=== PATIENT | male | born 1945 | race African-American/Black ===

== ENCOUNTER 2019-03-25 07:32 | Emergency (ER) | payer MEDICARE, MEDICAID ==
[~2019-03-25] VITALS: Ht 170.2 cm; Wt 72.6 kg
[~2019-03-25 07:32] MED LIST: AMLODIPINE
[2019-03-25] MEDS ORDERED: SODIUM CHLORIDE 0.9% 1,000 ML IV ONE (07:59)
[2019-03-25 08:23] LABS: Basophils # (auto) 0.1 uL; Basophils % (auto) 1.4 % (0.0-2.0); Eosinophils # (auto) 0.1 uL; Hemoglobin 14.4 g/dL (13.5-17.5); Lymphocytes % (auto) 18.1 % (10.0-50.0); Mean Corpuscular Hemoglobin 30.3 pg (28.0-32.0); Mean Corpuscular Hgb Conc. 33.5 g/dL (32.0-36.0); Mean Corpuscular Volume 90.3 fL (80.0-100.0); Monocytes # (auto) 0.5 uL; Monocytes % (auto) 8.6 % (0.0-12.0); Neutrophils # (auto) 3.8 uL; Neutrophils % (auto) 69.9 % (37.0-80.0); Platelet Count (auto) 160 10^3/uL (140-450); Red Blood Cells 4.76 10^6/uL (4.5-5.90); Red Cell Distribution Width 15.7 % (11.8-14.3); White Blood Cell 5.4 10^3/uL (4.4-10.8)
[2019-03-25 08:37] LABS: Albumin 3.4 g/dL (3.4-5.0); Calcium 8.6 mg/dL (8.5-10.1); Chloride 108 mmol/L (98-107); Potassium 3.6 mmol/L (3.5-5.1); Sodium 140 mmol/L (136-145)
[2019-03-25 08:45] LABS: Alanine Aminotransferase 14 U/L (16-61); Alkaline Phosphatase 86 U/L (45-117); Anion Gap 4 (5-15); Aspartate Aminotransferase 14 U/L (15-37); Bilirubin, Total 0.7 mg/dL (0.2-1.0); Blood Urea Nitrogen 12 mg/dL (7-18); Carbon Dioxide 28 mmol/L (21-32); GFR African American 68 mL/min; GFR Non-African American 56 mL/min; Glucose 90 mg/dL (74-106); Magnesium 2.2 mg/dL (1.6-2.6); Total Protein 7.2 g/dL (6.4-8.2)
[2019-03-25 09:32] LABS: Urine Bacteria FEW /hpf (None Seen); Urine Blood TRACE /uL (Negative); Urine Specific Gravity 1.015 (1.001-1.035); Urine WBC 1 /hpf (0 - 3)
[2019-03-25] MEDS ORDERED: cloNIDine HCL 0.1 MG TAB PO ONE (10:30)
[2019-03-25 12:05] VITALS: BP 154/83
== END 2019-03-25 12:25 | disposition home or self-care (01) ==
LOC: EDBD 07:32 → ER 07:34
DX: I10 Essential (primary) hypertension (principal); R42 Dizziness and giddiness; E78.5 Hyperlipidemia, unspecified; Z87.891 Personal history of nicotine dependence
CPT/HCPCS: 36415; 71046; 80053; 81001; 83735; 84443; 84484; 85025; 96360; 96361; 99284; J7030

== ENCOUNTER 2020-08-27 04:33 | Emergency (ER) | payer MEDICAID ==
[~2020-08-27] VITALS: Ht 167.6 cm; Wt 68.0 kg
[2020-08-27 07:50] VITALS: BP 113/54
== END 2020-08-27 08:14 | disposition home or self-care (01) ==
LOC: ER 04:33 → EDBD 04:33 → ER 08:14
DX: M25.572 Pain in left ankle and joints of left foot (principal); F41.9 Anxiety disorder, unspecified; M79.18 Myalgia, other site; E78.5 Hyperlipidemia, unspecified; I10 Essential (primary) hypertension; F12.10 Cannabis abuse, uncomplicated; Z87.891 Personal history of nicotine dependence; Z20.828 Contact with and (suspected) exposure to other viral communicable diseases
CPT/HCPCS: 36415; 73600; 87426

== ENCOUNTER 2020-11-16 16:01 | Inpatient (IN) | payer MEDICARE, MEDICAID ==
[~2020-11-16] VITALS: Ht 177.8 cm; Wt 62.0 kg
[2020-11-16 17:12] LABS: Basophils # (auto) 0.1 10 ^3/uL (0-0.2); Basophils % (auto) 1.3 % (0.0-2.0); Eosinophils # (auto) 0.2 10 ^3/uL (0-0.8); Eosinophils % (auto) 2.1 % (0.0-7.0); Hematocrit 30.3 % (41.0-53.0); Hemoglobin 9.6 g/dL (13.5-17.5); Lymphocytes # (auto) 1.1 10 ^3/uL (0.4-5.4); Lymphocytes % (auto) 12.9 % (10.0-50.0); Mean Corpuscular Hemoglobin 28.5 pg (28.0-32.0); Mean Corpuscular Hgb Conc. 31.5 g/dL (32.0-36.0); Mean Corpuscular Volume 90.4 fL (80.0-100.0); Monocytes # (auto) 0.8 10 ^3/uL (0-1.3); Monocytes % (auto) 9.1 % (0.0-12.0); Neutrophils # (auto) 6.3 10 ^3/uL (1.6-8.6); Neutrophils % (auto) 74.6 % (37.0-80.0); Nucleated Red Blood Cells % 0.1 %; Platelet Count (auto) 281 10^3/uL (140-450); Red Blood Cells 3.35 10^6/uL (4.5-5.90); White Blood Cell 8.4 10^3/uL (4.4-10.8)
[2020-11-16 17:13] LABS: Red Cell Distribution Width 20.8 % (11.8-14.3)
[2020-11-16] MEDS ORDERED: SODIUM CHLORIDE 0.9% 1,000 ML IV ONE (17:15)
[2020-11-16 17:31] LABS: Albumin 2.9 g/dL (3.4-5.0); Calcium 8.3 mg/dL (8.5-10.1)
[2020-11-16 17:34] LABS: BUN/Creatinine Ratio 20.6
[2020-11-16 17:36] LABS: Bilirubin, Total 0.9 mg/dL (0.2-1.0); Total Protein 6.6 g/dL (6.4-8.2)
[2020-11-16 17:40] LABS: Magnesium 1.9 mg/dL (1.6-2.6)
[2020-11-16] MEDS ORDERED: LIDOCAINE 2% JELLY 11ml (GLYDO) UR STA (18:01)
[2020-11-16] MEDS ORDERED: FUROSEMIDE 100 MG/10ML VIAL IV ONE (18:45)
[2020-11-16] MEDS ORDERED: FUROSEMIDE 40 MG/4 ML VIAL IV ONE (18:45)
[2020-11-16] MEDS ORDERED: cefTRIAXone 1GM/50ML D5W 50 ML IV ONE ×2 (18:45→19:00)
[2020-11-16] MEDS ORDERED: MORPHINE SULF INJ 2 MG/ML SYRINGE 1ML IV PRN ×3 (18:45→19:00)
[2020-11-16] MEDS ORDERED: NITROGLYCERIN 0.4 MG SL TAB SL PRN ×3 (18:45→19:00)
[2020-11-16 18:48] LABS: Urine Bacteria NONE SEEN /hpf (None Seen); Urine Blood 1+ /uL (Negative); Urine Specific Gravity 1.019 (1.001-1.035); Urine WBC 1062 /hpf (0 - 3); Urine WBC Clumps PRESENT /hpf (None Seen)
[2020-11-16] MEDS ORDERED: HYDROcodone-ACET 5/325MG TAB PO PRN (19:00)
[2020-11-16] MEDS ORDERED: LORazepam 0.5 MG TAB PO PRN (19:00)
[2020-11-16] MEDS ORDERED: ACETAMINOPHEN 325 MG TAB PO PRN (19:00)
[2020-11-16] MEDS ORDERED: ONDANSETRON HCL 4 MG/2 ML VIAL IV PRN (19:00)
[2020-11-16] MEDS ORDERED: DOCUSATE SOD 100 MG CAP PO PRN (19:00)
[2020-11-16 20:10] LABS: Cholesterol 175 mg/dL (< 200)
[2020-11-16 20:13] LABS: HDL Cholesterol 50 mg/dL (40-59); INR 1.08 (0.9-1.15); LDL Cholesterol 112 mg/dL (< 100); Triglycerides 93 mg/dL (< 150)
[2020-11-16] MEDS ORDERED: AZITHROMYCIN 500MG/ 250ML 250 ML IV ONE (20:15)
[2020-11-16] MEDS ORDERED: hydrALAZINE HCL 20 MG/ML VL IV PRN (20:15)
[2020-11-16] MEDS ORDERED: LORazepam 2MG/ML-1ML VIAL IV PRN (20:30)
[2020-11-16 20:51] LABS: Amphetamine Screen, Urine POSITIVE (NEGATIVE); Barbiturate Scree,Urine NEGATIVE (NEGATIVE); Benzodiazephine Screen, Urine NEGATIVE (NEGATIVE); Cannabinoid Screen, Urine NEGATIVE (NEGATIVE); Cocaine Screen, Urine NEGATIVE (NEGATIVE); Opiate Scree,Urine NEGATIVE (NEGATIVE); Phencyclidine Screen, Urine NEGATIVE (NEGATIVE)
[2020-11-16] MEDS: METOPROLOL TARTRATE 25 MG TAB PO SCH (21:27)
[2020-11-16] MEDS: SODIUM CHLOR 0.9% PF (SALINE LOCK) 10ML VIAL/SYR IV SCH (21:29)
[2020-11-16] MEDS ORDERED: FUROSEMIDE IV ONE (22:00)
[2020-11-16] MEDS ORDERED: ATORVASTATIN 20 MG TAB PO SCH (22:00)
[2020-11-16] MEDS ORDERED: SODIUM CHL 0.9% IV ONE (22:00)
[2020-11-16 22:06] LABS: % Iron Saturation 8.3 % (20-55)
[2020-11-16 22:16] LABS: Folate (Folic Acid) 13.05 ng/mL (5.38-24)
[2020-11-17] MEDS: SODIUM CHLOR 0.9% PF (SALINE LOCK) 10ML VIAL/SYR IV SCH ×3 (04:54→21:50)
[2020-11-17 05:34] VITALS: BP 147/81
[2020-11-17] MEDS: FUROSEMIDE 40 MG/4 ML VIAL IV SCH ×2 (06:26→17:43)
[2020-11-17 09:00] VITALS: BP 135/70
[2020-11-17 10:07] LABS: Basophils # (auto) 0 10 ^3/uL (0-0.2); Basophils % (auto) 0.4 % (0.0-2.0); Eosinophils # (auto) 0.1 10 ^3/uL (0-0.8); Eosinophils % (auto) 0.9 % (0.0-7.0); Hematocrit 30.4 % (41.0-53.0); Hemoglobin 9.7 g/dL (13.5-17.5); Lymphocytes # (auto) 1.3 10 ^3/uL (0.4-5.4); Lymphocytes % (auto) 12.4 % (10.0-50.0); Mean Corpuscular Hemoglobin 28.6 pg (28.0-32.0); Mean Corpuscular Hgb Conc. 32.1 g/dL (32.0-36.0); Mean Corpuscular Volume 89.2 fL (80.0-100.0); Monocytes # (auto) 0.8 10 ^3/uL (0-1.3); Monocytes % (auto) 7.3 % (0.0-12.0); Neutrophils # (auto) 8.4 10 ^3/uL (1.6-8.6); Nucleated Red Blood Cells % 0.1 %; Platelet Count (auto) 296 10^3/uL (140-450); Red Cell Distribution Width 20.1 % (11.8-14.3); White Blood Cell 10.7 10^3/uL (4.4-10.8)
[2020-11-17] MEDS: ENOXAPARIN SOD 40 MG/0.4 ML SYRINGE SC SCH (10:09)
[2020-11-17] MEDS: ASPirin 81 mg TAB PO SCH (10:09)
[2020-11-17] MEDS: METOPROLOL TARTRATE 25 MG TAB PO SCH ×2 (10:10→21:51)
[2020-11-17] MEDS: LISINOPRIL 5 MG TAB PO SCH (10:11)
[2020-11-17 10:22] LABS: Albumin 3.1 g/dL (3.4-5.0); Anion Gap 8 (5-15); Blood Urea Nitrogen 36 mg/dL (7-18); Calcium 8.5 mg/dL (8.5-10.1); Carbon Dioxide 25 mmol/L (21-32); Chloride 107 mmol/L (98-107); Glucose 102 mg/dL (74-106); Potassium 3.6 mmol/L (3.5-5.1); Sodium 140 mmol/L (136-145)
[2020-11-17 10:29] LABS: Alanine Aminotransferase 96 U/L (16-61); Alkaline Phosphatase 136 U/L (45-117); Aspartate Aminotransferase 56 U/L (15-37); BUN/Creatinine Ratio 21.7; Bilirubin, Total 1.5 mg/dL (0.2-1.0); GFR African American 52 mL/min; GFR Non-African American 43 mL/min; Phosphorus 3.7 mg/dL (2.5-4.90); Total Protein 7.4 g/dL (6.4-8.2)
[2020-11-17 10:59] LABS: INR 1.11 (0.9-1.15); Partial Thromboplastin Time 26.5 sec (23.0-31.2)
[2020-11-17 11:07] LABS: Hepatitis A Ab IgM Negative; Hepatitis B Surface Antigen Negative (Negative)
[2020-11-17 11:08] LABS: Hepatitis B Core IgM Negative; Hepatitis C Antibody Negative (Negative)
[2020-11-17] MEDS ORDERED: OMNIPAQUE ORAL SOLN 500ml 12mg/ml PO ONE (11:14)
[2020-11-17 12:45] VITALS: BP 115/72
[2020-11-17] MEDS ORDERED: ALBUTEROL SULF 2.5 MG/0.5ML(0.5%) NEB SOLN NEB PRN (14:30)
[2020-11-17] MEDS ORDERED: IPRATROPIUM BROM 0.5 MG/2.5ML INH SOL NEB PRN (14:30)
[2020-11-17 17:00] VITALS: BP 116/78
[2020-11-17] MEDS: cefTRIAXone 1GM/50ML D5W 50 ML IV SCH (20:35)
[2020-11-17 21:08] VITALS: BP 116/78
[2020-11-17] MEDS: PANTOPRAZOLE 40 MG TAB PO SCH (21:51)
[2020-11-17] MEDS: AZITHROMYCIN 500MG/ 250ML 250 ML IV SCH (21:51)
[2020-11-17] MEDS: ATORVASTATIN 20 MG TAB PO SCH (21:51)
[2020-11-17 22:00] VITALS: BP 118/80
[2020-11-17] MEDS ORDERED: CYANOCOBALAMIN (B-12) 1000 MCG/1 ML VIAL IM ONE (23:45)
[2020-11-18 04:00] VITALS: BP 119/86
[2020-11-18] MEDS: SODIUM CHLOR 0.9% PF (SALINE LOCK) 10ML VIAL/SYR IV SCH ×3 (06:14→21:59)
[2020-11-18] MEDS: FUROSEMIDE 40 MG/4 ML VIAL IV SCH (06:15)
[2020-11-18 06:41] LABS: Potassium 3.7 mmol/L (3.5-5.1)
[2020-11-18 06:47] LABS: Basophils # (auto) 0.1 10 ^3/uL (0-0.2); Basophils % (auto) 0.9 % (0.0-2.0); Eosinophils # (auto) 0.3 10 ^3/uL (0-0.8); Eosinophils % (auto) 3.3 % (0.0-7.0); Hematocrit 29.2 % (41.0-53.0); Hemoglobin 9.4 g/dL (13.5-17.5); Lymphocytes # (auto) 1.3 10 ^3/uL (0.4-5.4); Lymphocytes % (auto) 14.3 % (10.0-50.0); Mean Corpuscular Hemoglobin 28.7 pg (28.0-32.0); Mean Corpuscular Hgb Conc. 32.3 g/dL (32.0-36.0); Mean Corpuscular Volume 88.8 fL (80.0-100.0); Monocytes # (auto) 0.8 10 ^3/uL (0-1.3); Monocytes % (auto) 8.7 % (0.0-12.0); Neutrophils # (auto) 6.7 10 ^3/uL (1.6-8.6); Neutrophils % (auto) 72.8 % (37.0-80.0); Nucleated Red Blood Cells % 0.1 %; Platelet Count (auto) 297 10^3/uL (140-450); Red Blood Cells 3.29 10^6/uL (4.5-5.90); Red Cell Distribution Width 19.9 % (11.8-14.3); White Blood Cell 9.2 10^3/uL (4.4-10.8)
[2020-11-18 06:49] LABS: Albumin 2.8 g/dL (3.4-5.0); BUN/Creatinine Ratio 21.3; Bilirubin, Total 1.1 mg/dL (0.2-1.0); Calcium 8.8 mg/dL (8.5-10.1); Total Protein 6.5 g/dL (6.4-8.2)
[2020-11-18 07:27] LABS: Urine Bacteria FEW /hpf (None Seen); Urine Blood 1+ /uL (Negative); Urine Specific Gravity 1.006 (1.001-1.035); Urine WBC 38 /hpf (0 - 3)
[2020-11-18 07:35] LABS: Protein, Urine 7.8 mg/dL (0.0-11.9)
[2020-11-18 08:37] VITALS: BP 116/67
[2020-11-18] MEDS: ASPirin 81 mg TAB PO SCH (09:43)
[2020-11-18] MEDS: METOPROLOL TARTRATE 25 MG TAB PO SCH ×2 (09:44→22:00)
[2020-11-18] MEDS: PANTOPRAZOLE 40 MG TAB PO SCH ×2 (09:44→22:00)
[2020-11-18] MEDS: CYANOCOBALAMIN 500 MCG TAB PO SCH (09:45)
[2020-11-18] MEDS: ENOXAPARIN SOD 40 MG/0.4 ML SYRINGE SC SCH (09:45)
[2020-11-18] MEDS: LISINOPRIL 5 MG TAB PO SCH (09:45)
[2020-11-18 12:20] VITALS: BP 105/71
[2020-11-18 15:50] VITALS: BP 101/62
[2020-11-18] MEDS: cefTRIAXone 1GM/50ML D5W 50 ML IV SCH (20:47)
[2020-11-18] MEDS: ATORVASTATIN 20 MG TAB PO SCH (21:59)
[2020-11-18] MEDS: AZITHROMYCIN 500MG/ 250ML 250 ML IV SCH (21:59)
[2020-11-18 22:00] VITALS: BP 124/61
[2020-11-19 05:00] VITALS: BP 134/77
[2020-11-19] MEDS: SODIUM CHLOR 0.9% PF (SALINE LOCK) 10ML VIAL/SYR IV SCH ×3 (06:00→20:40)
[2020-11-19 08:49] VITALS: BP 124/84
[2020-11-19] MEDS: PANTOPRAZOLE 40 MG TAB PO SCH ×2 (10:18→21:05)
[2020-11-19] MEDS: METOPROLOL TARTRATE 25 MG TAB PO SCH ×2 (10:18→21:05)
[2020-11-19] MEDS: FUROSEMIDE 40 MG/4 ML VIAL IV SCH (10:18)
[2020-11-19] MEDS: ASPirin 81 mg TAB PO SCH (10:18)
[2020-11-19] MEDS: CYANOCOBALAMIN 500 MCG TAB PO SCH (10:19)
[2020-11-19] MEDS: ENOXAPARIN SOD 40 MG/0.4 ML SYRINGE SC SCH (10:19)
[2020-11-19 12:30] VITALS: BP 105/65
[2020-11-19 16:58] VITALS: BP 110/72
[2020-11-19] MEDS: cefTRIAXone 1GM/50ML D5W 50 ML IV SCH (20:39)
[2020-11-19] MEDS: ATORVASTATIN 20 MG TAB PO SCH (21:05)
[2020-11-19] MEDS: AZITHROMYCIN 500MG/ 250ML 250 ML IV SCH (21:26)
[2020-11-19 22:00] VITALS: BP 104/56
[2020-11-20 05:00] VITALS: BP 129/94
[2020-11-20] MEDS: SODIUM CHLOR 0.9% PF (SALINE LOCK) 10ML VIAL/SYR IV SCH ×3 (06:03→21:54)
[2020-11-20 09:00] VITALS: BP 124/79
[2020-11-20] MEDS: METOPROLOL TARTRATE 25 MG TAB PO SCH ×2 (10:30→22:00)
[2020-11-20] MEDS: ASPirin 81 mg TAB PO SCH (10:30)
[2020-11-20] MEDS: FUROSEMIDE 40 MG/4 ML VIAL IV SCH (11:09)
[2020-11-20] MEDS: CYANOCOBALAMIN 500 MCG TAB PO SCH (11:10)
[2020-11-20] MEDS: ENOXAPARIN SOD 40 MG/0.4 ML SYRINGE SC SCH (11:10)
[2020-11-20] MEDS: PANTOPRAZOLE 40 MG TAB PO SCH ×2 (11:10→21:55)
[2020-11-20 13:00] VITALS: BP 122/77
[2020-11-20 17:00] VITALS: BP 115/65
[2020-11-20 21:23] VITALS: BP 115/65
[2020-11-20] MEDS: CIPROFLOXACIN 400MG/200ML 200 ML IV SCH (21:53)
[2020-11-20] MEDS: LINEZOLID 600MG/300ML 300 ML IV SCH (21:54)
[2020-11-20] MEDS: ATORVASTATIN 20 MG TAB PO SCH (21:55)
[2020-11-20 22:00] VITALS: BP 109/57
[2020-11-21 05:00] VITALS: BP 111/73
[2020-11-21] MEDS: CIPROFLOXACIN 400MG/200ML 200 ML IV SCH (05:41)
[2020-11-21] MEDS: SODIUM CHLOR 0.9% PF (SALINE LOCK) 10ML VIAL/SYR IV SCH ×2 (06:18→14:00)
[2020-11-21 07:03] LABS: Basophils # (auto) 0.1 10 ^3/uL (0-0.2); Basophils % (auto) 1.2 % (0.0-2.0); Eosinophils # (auto) 0.3 10 ^3/uL (0-0.8); Eosinophils % (auto) 3.8 % (0.0-7.0); Hematocrit 34.1 % (41.0-53.0); Hemoglobin 10.8 g/dL (13.5-17.5); Lymphocytes # (auto) 1.1 10 ^3/uL (0.4-5.4); Lymphocytes % (auto) 13.5 % (10.0-50.0); Mean Corpuscular Hemoglobin 28.5 pg (28.0-32.0); Mean Corpuscular Hgb Conc. 31.8 g/dL (32.0-36.0); Mean Corpuscular Volume 89.6 fL (80.0-100.0); Monocytes # (auto) 0.9 10 ^3/uL (0-1.3); Monocytes % (auto) 10.9 % (0.0-12.0); Neutrophils # (auto) 5.7 10 ^3/uL (1.6-8.6); Neutrophils % (auto) 70.6 % (37.0-80.0); Platelet Count (auto) 293 10^3/uL (140-450); Red Blood Cells 3.81 10^6/uL (4.5-5.90); Red Cell Distribution Width 18.9 % (11.8-14.3)
[2020-11-21 07:17] LABS: INR 1.08 (0.9-1.15); Partial Thromboplastin Time 26.5 sec (23.0-31.2)
[2020-11-21 07:27] LABS: Calcium 8.9 mg/dL (8.5-10.1); Potassium 5.1 mmol/L (3.5-5.1)
[2020-11-21 07:29] LABS: BUN/Creatinine Ratio 20.9
[2020-11-21 09:00] VITALS: BP 121/69
[2020-11-21] MEDS: LINEZOLID 600MG/300ML 300 ML IV SCH (10:00)
[2020-11-21] MEDS: FUROSEMIDE 40 MG/4 ML VIAL IV SCH (10:00)
[2020-11-21] MEDS: ASPirin 81 mg TAB PO SCH (10:07)
[2020-11-21] MEDS: ENOXAPARIN SOD 40 MG/0.4 ML SYRINGE SC SCH (10:08)
[2020-11-21] MEDS: METOPROLOL TARTRATE 25 MG TAB PO SCH (10:08)
[2020-11-21] MEDS: CYANOCOBALAMIN 500 MCG TAB PO SCH (10:08)
[2020-11-21] MEDS: PANTOPRAZOLE 40 MG TAB PO SCH (10:08)
[2020-11-21 12:48] VITALS: BP 118/73
[2020-11-21] MEDS ORDERED: LINE1TAB6 PO (12:57)
[2020-11-21] MEDS ORDERED: LEVO-28 PO (12:57)
[2020-11-21] MEDS ORDERED: ASPI-231 PO (12:57)
[2020-11-21] MEDS ORDERED: TAM04C PO (12:57)
[2020-11-21] MEDS ORDERED: PANT40T PO (12:57)
[2020-11-21] MEDS ORDERED: METO25TA5 PO (12:57)
[2020-11-21] MEDS ORDERED: ATOR40TA52 PO (12:57)
[2020-11-21] MEDS ORDERED: CIPROFLOXACIN HCL 500 MG TAB PO ONE (13:30)
[2020-11-21] MEDS ORDERED: LINEZOLID 600MG TABLET PO ONE (13:30)
[2020-11-21 17:00] VITALS: BP 116/68
[2020-11-21] MEDS ORDERED: LINEZOLID 600MG TABLET PO SCH (22:00)
[2020-11-21] MEDS ORDERED: CIPROFLOXACIN HCL 500 MG TAB PO SCH (22:00)
== END 2020-11-21 19:35 | disposition home health service, planned readmission (86) | DRG 291 ==
LOC: EDBD 16:01 → ER 16:01 → TELE 16:02 → TELE-EAST 11-17 04:10 → TELE-WESTW 11-18 16:06
PROVIDERS: ADMIT Hospitalist; ATTEND Internal Medicine
DX: I13.0 Hypertensive heart and chronic kidney disease with heart failure and stage 1 through stage 4 chronic kidney disease, or unspecified chronic kidney disease (principal); I50.43 Acute on chronic combined systolic (congestive) and diastolic (congestive) heart failure; G93.41 Metabolic encephalopathy; J18.9 Pneumonia, unspecified organism; N17.0 Acute kidney failure with tubular necrosis; N30.01 Acute cystitis with hematuria; I16.9 Hypertensive crisis, unspecified; B17.9 Acute viral hepatitis, unspecified; J44.0 Chronic obstructive pulmonary disease with (acute) lower respiratory infection; Z16.21 Resistance to vancomycin; N13.8 Other obstructive and reflux uropathy; E44.0 Moderate protein-calorie malnutrition; N18.31 Chronic kidney disease, stage 3a; D64.9 Anemia, unspecified; M19.90 Unspecified osteoarthritis, unspecified site; M47.812 Spondylosis without myelopathy or radiculopathy, cervical region; N40.1 Benign prostatic hyperplasia with lower urinary tract symptoms; N32.0 Bladder-neck obstruction; I87.2 Venous insufficiency (chronic) (peripheral); B35.1 Tinea unguium; I70.25 Atherosclerosis of native arteries of other extremities with ulceration; E78.5 Hyperlipidemia, unspecified; F15.10 Other stimulant abuse, uncomplicated; N20.0 Calculus of kidney; N21.0 Calculus in bladder; L97.519 Non-pressure chronic ulcer of other part of right foot with unspecified severity; B95.2 Enterococcus as the cause of diseases classified elsewhere; E11.22 Type 2 diabetes mellitus with diabetic chronic kidney disease; E11.51 Type 2 diabetes mellitus with diabetic peripheral angiopathy without gangrene; E11.621 Type 2 diabetes mellitus with foot ulcer; F17.210 Nicotine dependence, cigarettes, uncomplicated; F41.9 Anxiety disorder, unspecified; I08.1 Rheumatic disorders of both mitral and tricuspid valves; M48.02 Spinal stenosis, cervical region; R33.8 Other retention of urine; Z20.822 Contact with and (suspected) exposure to COVID-19; Z79.82 Long term (current) use of aspirin; Z79.899 Other long term (current) drug therapy; Z86.73 Personal history of transient ischemic attack (TIA), and cerebral infarction without residual deficits; Z91.14 Patient's other noncompliance with medication regimen; I27.20 Pulmonary hypertension, unspecified; I65.23 Occlusion and stenosis of bilateral carotid arteries; B96.5 Pseudomonas (aeruginosa) (mallei) (pseudomallei) as the cause of diseases classified elsewhere
CPT/HCPCS: 36415; 70551; 71046; 74176; 80048; 80053; 80061; 80074; 80307; 81001; 82306; 82570; 82607; 82746; 83036; 83540; 83550; 83735; 83880; 84100; 84154; 84156; 84300; 84443; 84484; 85025; 85610; 85730; 87040; 87086; 87088; 87186; 87426; 93005; 93306; 93886; 93926; 93970; 96361; 96365; 96367; 96375; G0378; J0696

== ENCOUNTER 2020-11-30 13:22 | Emergency (ER) | payer MEDICAID, MEDICARE ==
[~2020-11-30] VITALS: Ht 167.6 cm; Wt 72.6 kg
[~2020-11-30 13:22] MED LIST changes: -AMLODIPINE; +ASPI-231 PO; +ATOR40TA52 PO; +LEVO-28 PO; +LINE1TAB6 PO; +METO25TA5 PO; +PANT40T PO; +TAM04C PO
[2020-11-30 13:42] VITALS: BP 163/97
[2020-11-30 14:15] LABS: Albumin 3.2 g/dL (3.4-5.0); Calcium 9.1 mg/dL (8.5-10.1); Potassium 4.3 mmol/L (3.5-5.1)
[2020-11-30 14:19] LABS: BUN/Creatinine Ratio 19.2; Total Protein 7.6 g/dL (6.4-8.2)
[2020-11-30 14:21] LABS: Basophils # (auto) 0.1 10 ^3/uL (0-0.2); Basophils % (auto) 1.8 % (0.0-2.0); Eosinophils # (auto) 0 10 ^3/uL (0-0.8); Eosinophils % (auto) 0.3 % (0.0-7.0); Hematocrit 32.5 % (41.0-53.0); Hemoglobin 10.1 g/dL (13.5-17.5); Lymphocytes # (auto) 0.9 10 ^3/uL (0.4-5.4); Lymphocytes % (auto) 13.1 % (10.0-50.0); Mean Corpuscular Hemoglobin 28.3 pg (28.0-32.0); Mean Corpuscular Volume 91.1 fL (80.0-100.0); Monocytes # (auto) 0.5 10 ^3/uL (0-1.3); Monocytes % (auto) 7.8 % (0.0-12.0); Neutrophils # (auto) 5.3 10 ^3/uL (1.6-8.6); Nucleated Red Blood Cells % 0.2 %; Platelet Count (auto) 229 10^3/uL (140-450); Red Blood Cells 3.57 10^6/uL (4.5-5.90); Red Cell Distribution Width 18.7 % (11.8-14.3); White Blood Cell 6.9 10^3/uL (4.4-10.8)
[2020-11-30 14:22] LABS: INR 1.1 (0.9-1.15); Partial Thromboplastin Time 29.1 sec (23.0-31.2)
[2020-11-30] MEDS ORDERED: ONDANSETRON HCL 4 MG/2 ML VIAL IV ONE (14:30)
[2020-11-30] MEDS ORDERED: MORPHINE SULF INJ 2 MG/ML SYRINGE 1ML IV ONE (14:30)
[2020-11-30 15:02] LABS: Magnesium 2.1 mg/dL (1.6-2.6)
[2020-11-30 15:58] LABS: Urine Amorphous Crystal FEW /hpf (None Seen); Urine Bacteria FEW /hpf (None Seen); Urine Blood 2+ /uL (Negative); Urine Hyaline Cast FEW /lpf (0 - 2); Urine Specific Gravity 1.017 (1.001-1.035); Urine WBC 22 /hpf (0 - 3)
== END 2020-11-30 16:45 | disposition left against medical advice (07) ==
LOC: ER 13:22
DX: N13.30 Unspecified hydronephrosis (principal); N21.0 Calculus in bladder; N32.3 Diverticulum of bladder; Z20.822 Contact with and (suspected) exposure to COVID-19
CPT/HCPCS: 36415; 74176; 80053; 81001; 83735; 84484; 85025; 85610; 85730; 87426; 93005; 96374; 96375; 99285; C9803; J2270; J2405; U0003

== ENCOUNTER 2020-11-30 16:48 | Emergency (ER) | payer MEDICAID ==
[~2020-11-30] VITALS: Ht 167.6 cm; Wt 77.1 kg
[2020-11-30] MEDS ORDERED: ONDANSETRON HCL 4 MG/2 ML VIAL IV ONE (18:00)
[2020-11-30] MEDS ORDERED: MORPHINE SULFATE 4 MG/ML SYR/VIAL IV ONE (18:00)
[2020-11-30] MEDS ORDERED: SODIUM CHLORIDE 0.9% 1,000 ML IVB ONE (18:00)
[2020-11-30 21:15] VITALS: BP 140/87
== END 2020-11-30 21:27 | disposition home or self-care (01) ==
LOC: ER 16:48
DX: N39.0 Urinary tract infection, site not specified (principal); F15.90 Other stimulant use, unspecified, uncomplicated; E78.5 Hyperlipidemia, unspecified; I10 Essential (primary) hypertension; Z87.891 Personal history of nicotine dependence; Z79.899 Other long term (current) drug therapy; Z79.82 Long term (current) use of aspirin
CPT/HCPCS: 76700; 93005

== ENCOUNTER 2020-12-13 18:58 | Emergency (ER) | payer MEDICAID ==
[~2020-12-13] VITALS: Ht 167.6 cm; Wt 72.6 kg
[~2020-12-13 18:58] MED LIST changes: -ASPI-231 PO; +ASPI1TAB20 PO
[2020-12-13] MEDS ORDERED: methylPREDNISolone SOD SUCC 125 MG/2 ML VL IV ONE (19:15)
[2020-12-13 19:44] VITALS: BP 148/78
[2020-12-13 19:57] LABS: Basophils # (auto) 0.1 10 ^3/uL (0-0.2); Eosinophils # (auto) 0.1 10 ^3/uL (0-0.8); Eosinophils % (auto) 1.9 % (0.0-7.0); Hemoglobin 8.2 g/dL (13.5-17.5)
[2020-12-13 19:58] LABS: Basophils % (auto) 0.9 % (0.0-2.0); Hematocrit 25.2 % (41.0-53.0); Lymphocytes # (auto) 1.2 10 ^3/uL (0.4-5.4); Lymphocytes % (auto) 20.7 % (10.0-50.0); Mean Corpuscular Hemoglobin 28.4 pg (28.0-32.0); Mean Corpuscular Hgb Conc. 32.6 g/dL (32.0-36.0); Mean Corpuscular Volume 87.1 fL (80.0-100.0); Monocytes # (auto) 0.5 10 ^3/uL (0-1.3); Monocytes % (auto) 9.5 % (0.0-12.0); Neutrophils # (auto) 3.8 10 ^3/uL (1.6-8.6); Nucleated Red Blood Cells % 0.4 %; Red Blood Cells 2.89 10^6/uL (4.5-5.90); Red Cell Distribution Width 18.3 % (11.8-14.3); White Blood Cell 5.7 10^3/uL (4.4-10.8)
[2020-12-13 20:11] LABS: Albumin 3.1 g/dL (3.4-5.0); Anion Gap 11 (5-15); Blood Urea Nitrogen 28 mg/dL (7-18); Calcium 8.5 mg/dL (8.5-10.1); Carbon Dioxide 21 mmol/L (21-32); Chloride 109 mmol/L (98-107); Glucose 89 mg/dL (74-106); Potassium 4.6 mmol/L (3.5-5.1); Sodium 141 mmol/L (136-145)
[2020-12-13 20:13] LABS: Alanine Aminotransferase 41 U/L (16-61); Aspartate Aminotransferase 30 U/L (15-37); GFR African American 64 mL/min; GFR Non-African American 53 mL/min
[2020-12-13 20:17] LABS: Alkaline Phosphatase 107 U/L (45-117); Bilirubin, Total 1.3 mg/dL (0.2-1.0); Total Protein 6.9 g/dL (6.4-8.2)
== END 2020-12-13 21:02 | disposition home or self-care (01) ==
LOC: EDBD 18:58 → ER 19:01
DX: J44.1 Chronic obstructive pulmonary disease with (acute) exacerbation (principal); I11.0 Hypertensive heart disease with heart failure; I50.9 Heart failure, unspecified; E78.5 Hyperlipidemia, unspecified
CPT/HCPCS: 36415; 71045; 80053; 83605; 83880; 84484; 85025; 85379; 87040; 93005; 96374; 99285; J2930; 96365

== ENCOUNTER 2020-12-18 14:43 | Inpatient (IN) | payer MEDICARE, MEDICAID ==
[~2020-12-18] VITALS: Ht 170.2 cm; Wt 76.5 kg
[~2020-12-18 14:43] MED LIST changes: +ASPI-231 PO; -ASPI1TAB20 PO
[2020-12-18] MEDS ORDERED: ALBUTEROL SULF 2.5 MG/0.5ML(0.5%) NEB SOLN HHN STA (17:18)
[2020-12-18] MEDS ORDERED: IPRATROPIUM BROM 0.5 MG/2.5ML INH SOL NEB ONE (17:30)
[2020-12-18] MEDS ORDERED: ALBUTEROL SULF 2.5 MG/0.5ML(0.5%) NEB SOLN HHN ONE (18:00)
[2020-12-18] MEDS ORDERED: methylPREDNISolone SOD SUCC 125 MG/2 ML VL IV ONE (18:00)
[2020-12-18 18:43] LABS: Basophils # (auto) 0.1 10 ^3/uL (0-0.2); Eosinophils # (auto) 0.1 10 ^3/uL (0-0.8); Hemoglobin 7.3 g/dL (13.5-17.5); Monocytes # (auto) 0.9 10 ^3/uL (0-1.3)
[2020-12-18 18:45] LABS: Basophils % (auto) 1.4 % (0.0-2.0); Eosinophils % (auto) 1.1 % (0.0-7.0); Hematocrit 22.8 % (41.0-53.0); Lymphocytes # (auto) 1.3 10 ^3/uL (0.4-5.4); Lymphocytes % (auto) 18.4 % (10.0-50.0); Mean Corpuscular Hemoglobin 28.5 pg (28.0-32.0); Mean Corpuscular Hgb Conc. 32.2 g/dL (32.0-36.0); Mean Corpuscular Volume 88.5 fL (80.0-100.0); Monocytes % (auto) 11.9 % (0.0-12.0); Neutrophils # (auto) 4.9 10 ^3/uL (1.6-8.6); Neutrophils % (auto) 67.2 % (37.0-80.0); Nucleated Red Blood Cells % 0.4 %; Platelet Count (auto) 227 10^3/uL (140-450); Red Blood Cells 2.57 10^6/uL (4.5-5.90); Red Cell Distribution Width 18.5 % (11.8-14.3); White Blood Cell 7.2 10^3/uL (4.4-10.8)
[2020-12-18 19:03] LABS: Albumin 3.4 g/dL (3.4-5.0); Calcium 8.6 mg/dL (8.5-10.1); Magnesium 2.3 mg/dL (1.6-2.6); Potassium 4.3 mmol/L (3.5-5.1)
[2020-12-18 19:04] LABS: BUN/Creatinine Ratio 20.9
[2020-12-18 19:06] LABS: Lactic Acid w/Reflex 4.8 mmol/L (0.4-2.0)
[2020-12-18 19:09] LABS: Bilirubin, Total 1.3 mg/dL (0.2-1.0); Total Protein 6.9 g/dL (6.4-8.2)
[2020-12-18] MEDS ORDERED: NITROGLYCERIN 0.4 MG SL TAB SL PRN (21:45)
[2020-12-18] MEDS ORDERED: TEMAZEPAM 15 MG CAP PO PRN (21:45)
[2020-12-18] MEDS ORDERED: MORPHINE SULF INJ 2 MG/ML SYRINGE 1ML IV PRN (21:45)
[2020-12-18] MEDS ORDERED: ACETAMINOPHEN 325 MG TAB PO PRN (21:45)
[2020-12-18] MEDS ORDERED: FUROSEMIDE 20 MG/2 ML VIAL IV ONE (21:45)
[2020-12-18] MEDS ORDERED: ONDANSETRON HCL 4 MG/2 ML VIAL IV PRN (21:45)
[2020-12-18 22:16] VITALS: BP 151/88
[2020-12-18] MEDS ORDERED: levoFLOXacin 500MG 100 ML IV ONE (22:19)
[2020-12-18] MEDS: METOPROLOL TARTRATE 25 MG TAB PO SCH (22:36)
[2020-12-18] MEDS: ATORVASTATIN 20 MG TAB PO SCH (22:37)
[2020-12-18 23:28] VITALS: BP 129/82
[2020-12-18 23:59] VITALS: BP 128/82
[2020-12-19] VITALS (9 sets, daily range): BP systolic 107–122; BP diastolic 63–76
[2020-12-19] MEDS ORDERED: FUROSEMIDE 40 MG TAB PO SCH (10:00)
[2020-12-19] MEDS ORDERED: ENOXAPARIN SOD 40 MG/0.4 ML SYRINGE SC SCH ×2 (10:00)
[2020-12-19] MEDS ORDERED: ENOXAPARIN SOD 30 MG/0.3 ML SYRINGE SC SCH (10:00)
[2020-12-19] MEDS ORDERED: PANTOPRAZOLE 40 MG TAB PO SCH (10:00)
[2020-12-19 10:02] LABS: Basophils # (auto) 0 10 ^3/uL (0-0.2); Eosinophils # (auto) 0 10 ^3/uL (0-0.8); Lymphocytes # (auto) 0.6 10 ^3/uL (0.4-5.4); Lymphocytes % (auto) 21.4 % (10.0-50.0); Monocytes # (auto) 0.2 10 ^3/uL (0-1.3); Monocytes % (auto) 6.8 % (0.0-12.0); Neutrophils # (auto) 2.1 10 ^3/uL (1.6-8.6); Red Blood Cells 2.22 10^6/uL (4.5-5.90)
[2020-12-19 10:04] LABS: Basophils % (auto) 0.2 % (0.0-2.0); Hematocrit 18.9 % (41.0-53.0); Mean Corpuscular Hemoglobin 28.5 pg (28.0-32.0); Mean Corpuscular Hgb Conc. 33.4 g/dL (32.0-36.0); Mean Corpuscular Volume 85.2 fL (80.0-100.0); Neutrophils % (auto) 71.6 % (37.0-80.0); Nucleated Red Blood Cells % 0.5 %; Platelet Count (auto) 224 10^3/uL (140-450); White Blood Cell 2.9 10^3/uL (4.4-10.8)
[2020-12-19] MEDS: SACUBITRIL-VALSARTAN 24mg/26mg TAB PO SCH ×2 (10:24→22:30)
[2020-12-19] MEDS: METOPROLOL TARTRATE 25 MG TAB PO SCH ×2 (10:25→22:32)
[2020-12-19 10:32] LABS: Hemoglobin 6.3 g/dL (13.5-17.5)
[2020-12-19 10:40] LABS: Potassium 4.5 mmol/L (3.5-5.1)
[2020-12-19 10:56] LABS: Albumin 2.9 g/dL (3.4-5.0); BUN/Creatinine Ratio 21.6; Bilirubin, Total 1.3 mg/dL (0.2-1.0); Calcium 8.5 mg/dL (8.5-10.1); Total Protein 5.8 g/dL (6.4-8.2)
[2020-12-19] MEDS: levoFLOXacin 500MG 100 ML IV SCH (13:19)
[2020-12-19] MEDS: ALBUTEROL SULF 2.5 MG/0.5ML(0.5%) NEB SOLN NEB PRN ×2 (14:18→21:45)
[2020-12-19] MEDS: IPRATROPIUM BROM 0.5 MG/2.5ML INH SOL NEB PRN ×2 (14:18→21:45)
[2020-12-19 17:22] LABS: Urine Bacteria FEW /hpf (None Seen); Urine Blood 1+ /uL (Negative); Urine Hyaline Cast FEW /lpf (0 - 2); Urine Mucus FEW (None Seen); Urine Specific Gravity 1.016 (1.001-1.035); Urine WBC <1 /hpf (0 - 3)
[2020-12-19] MEDS: TAMSULOSIN HYDROCHLORIDE 0.4 MG CAP PO SCH (18:05)
[2020-12-19] MEDS ORDERED: MET25T PO (18:11)
[2020-12-19] MEDS: FUROSEMIDE 40 MG/4 ML VIAL IV SCH (19:45)
[2020-12-19 19:50] LABS: Amphetamine Screen, Urine NEGATIVE (NEGATIVE); Barbiturate Scree,Urine NEGATIVE (NEGATIVE); Benzodiazephine Screen, Urine NEGATIVE (NEGATIVE); Cannabinoid Screen, Urine NEGATIVE (NEGATIVE); Cocaine Screen, Urine NEGATIVE (NEGATIVE); Opiate Scree,Urine NEGATIVE (NEGATIVE); Phencyclidine Screen, Urine NEGATIVE (NEGATIVE)
[2020-12-19] MEDS: PANTOPRAZOLE 40 MG/10 ML VIAL INJ IV SCH (22:00)
[2020-12-19] MEDS: ATORVASTATIN 20 MG TAB PO SCH (22:31)
[2020-12-20 05:00] VITALS: BP 108/70
[2020-12-20] MEDS: FUROSEMIDE 40 MG/4 ML VIAL IV SCH ×2 (06:00→19:41)
[2020-12-20 07:35] LABS: Eosinophils # (auto) 0 10 ^3/uL (0-0.8); Eosinophils % (auto) 0.1 % (0.0-7.0); Hemoglobin 7.7 g/dL (13.5-17.5)
[2020-12-20 07:38] LABS: Basophils # (auto) 0.1 10 ^3/uL (0-0.2); Basophils % (auto) 0.5 % (0.0-2.0); Lymphocytes # (auto) 1.9 10 ^3/uL (0.4-5.4); Lymphocytes % (auto) 17.5 % (10.0-50.0); Mean Corpuscular Hemoglobin 28.4 pg (28.0-32.0); Mean Corpuscular Hgb Conc. 33.4 g/dL (32.0-36.0); Monocytes # (auto) 1.7 10 ^3/uL (0-1.3); Monocytes % (auto) 15.3 % (0.0-12.0); Neutrophils # (auto) 7.2 10 ^3/uL (1.6-8.6); Neutrophils % (auto) 66.6 % (37.0-80.0); Nucleated Red Blood Cells % 0.2 %; Platelet Count (auto) 237 10^3/uL (140-450); White Blood Cell 10.8 10^3/uL (4.4-10.8)
[2020-12-20 07:50] VITALS: BP 125/81
[2020-12-20 07:50] LABS: INR 1.41 (0.9-1.15); Partial Thromboplastin Time 26.2 sec (23.0-31.2)
[2020-12-20 08:00] LABS: BUN/Creatinine Ratio 24.5; Potassium 3.8 mmol/L (3.5-5.1)
[2020-12-20 09:00] VITALS: BP 125/81
[2020-12-20] MEDS: SACUBITRIL-VALSARTAN 24mg/26mg TAB PO SCH ×2 (09:36→22:34)
[2020-12-20] MEDS: PANTOPRAZOLE 40 MG/10 ML VIAL INJ IV SCH ×2 (09:36→22:34)
[2020-12-20] MEDS: METOPROLOL TARTRATE 25 MG TAB PO SCH ×2 (09:37→22:34)
[2020-12-20] MEDS: levoFLOXacin 500MG 100 ML IV SCH (09:47)
[2020-12-20 13:00] VITALS: BP 97/59
[2020-12-20] MEDS ORDERED: PANT40TA2 PO (14:07)
[2020-12-20] MEDS ORDERED: FER325T PO (14:07)
[2020-12-20 14:50] VITALS: BP 97/59
[2020-12-20] MEDS ORDERED: TAM04C PO (15:21)
[2020-12-20] MEDS ORDERED: CAR3125T PO (15:21)
[2020-12-20] MEDS ORDERED: ATOR10TA PO (15:21)
[2020-12-20] MEDS: TAMSULOSIN HYDROCHLORIDE 0.4 MG CAP PO SCH (19:36)
[2020-12-20 22:00] VITALS: BP 125/73
[2020-12-20] MEDS: ATORVASTATIN 20 MG TAB PO SCH (22:34)
[2020-12-21 05:00] VITALS: BP 111/71
[2020-12-21] MEDS: FUROSEMIDE 40 MG/4 ML VIAL IV SCH (05:55)
[2020-12-21 08:15] VITALS: BP 130/69
[2020-12-21 09:02] VITALS: BP 130/69
[2020-12-21 10:13] LABS: Basophils # (auto) 0.1 10 ^3/uL (0-0.2); Basophils % (auto) 0.4 % (0.0-2.0); Eosinophils # (auto) 0.1 10 ^3/uL (0-0.8); Eosinophils % (auto) 0.9 % (0.0-7.0); Hematocrit 27.7 % (41.0-53.0); Hemoglobin 9.1 g/dL (13.5-17.5); Lymphocytes # (auto) 1.9 10 ^3/uL (0.4-5.4); Lymphocytes % (auto) 12.8 % (10.0-50.0); Mean Corpuscular Hemoglobin 28.1 pg (28.0-32.0); Mean Corpuscular Hgb Conc. 32.8 g/dL (32.0-36.0); Mean Corpuscular Volume 85.7 fL (80.0-100.0); Monocytes % (auto) 13.8 % (0.0-12.0); Neutrophils # (auto) 10.6 10 ^3/uL (1.6-8.6); Neutrophils % (auto) 72.1 % (37.0-80.0); Nucleated Red Blood Cells % 0.9 %; Platelet Count (auto) 269 10^3/uL (140-450); Red Blood Cells 3.23 10^6/uL (4.5-5.90); Red Cell Distribution Width 16.8 % (11.8-14.3); White Blood Cell 14.8 10^3/uL (4.4-10.8)
[2020-12-21] MEDS: PANTOPRAZOLE 40 MG/10 ML VIAL INJ IV SCH (10:22)
[2020-12-21] MEDS: SACUBITRIL-VALSARTAN 24mg/26mg TAB PO SCH (10:23)
[2020-12-21] MEDS: METOPROLOL TARTRATE 25 MG TAB PO SCH (10:23)
[2020-12-21 10:35] LABS: Calcium 8.2 mg/dL (8.5-10.1); Potassium 3.4 mmol/L (3.5-5.1)
[2020-12-21 10:38] LABS: BUN/Creatinine Ratio 18.9
[2020-12-21] MEDS: levoFLOXacin 500MG 100 ML IV SCH (11:26)
[2020-12-21 13:11] VITALS: BP 112/73
== END 2020-12-21 14:30 | disposition home health service (06) | DRG 291 ==
LOC: EDBD 14:43 → ER 14:43 → EDUNIT# 14:43 → TELE 21:46 → TELE-WESTW 23:26
PROVIDERS: ADMIT Nurse Practitioner; ATTEND Internal Medicine
PROC: 30233N1 Transfusion of Nonautologous Red Blood Cells into Peripheral Vein, Percutaneous Approach (ICD-10-PCS; principal; 2020-12-19)
DX: I13.0 Hypertensive heart and chronic kidney disease with heart failure and stage 1 through stage 4 chronic kidney disease, or unspecified chronic kidney disease (principal); J96.20 Acute and chronic respiratory failure, unspecified whether with hypoxia or hypercapnia; I50.43 Acute on chronic combined systolic (congestive) and diastolic (congestive) heart failure; K92.2 Gastrointestinal hemorrhage, unspecified; J44.1 Chronic obstructive pulmonary disease with (acute) exacerbation; Z20.822 Contact with and (suspected) exposure to COVID-19; I42.9 Cardiomyopathy, unspecified; D50.8 Other iron deficiency anemias; D63.8 Anemia in other chronic diseases classified elsewhere; I73.9 Peripheral vascular disease, unspecified; I27.20 Pulmonary hypertension, unspecified; I34.0 Nonrheumatic mitral (valve) insufficiency; I65.23 Occlusion and stenosis of bilateral carotid arteries; I65.29 Occlusion and stenosis of unspecified carotid artery; N18.31 Chronic kidney disease, stage 3a; E78.5 Hyperlipidemia, unspecified; E11.22 Type 2 diabetes mellitus with diabetic chronic kidney disease; E11.51 Type 2 diabetes mellitus with diabetic peripheral angiopathy without gangrene; F15.90 Other stimulant use, unspecified, uncomplicated; I25.10 Atherosclerotic heart disease of native coronary artery without angina pectoris; I70.0 Atherosclerosis of aorta; N40.0 Benign prostatic hyperplasia without lower urinary tract symptoms; Z87.442 Personal history of urinary calculi; Z87.891 Personal history of nicotine dependence; Z79.82 Long term (current) use of aspirin
CPT/HCPCS: 36415; 71045; 80048; 80053; 80307; 81001; 83605; 83735; 83880; 84484; 85025; 85610; 85730; 86850; 86900; 86901; 86920; 87040; 87081; 87426; 93005; 94640; 96365; 96375; C9113; G0378; J1956